=== PATIENT | male | born 1980 | race Caucasian/White ===

== ENCOUNTER 2017-06-13 13:15 | Emergency (ER) | payer SELFPAY ==
[~2017-06-13] VITALS: Ht 175.3 cm; Wt 117.4 kg
--- NOTE | 2017-06-13 14:11 | RAD ---
Indication: Back pain for one week and numbness in right leg Technique: CT of the lumbar spine without IV contrast with multiplanar reformats. Comparison: None Findings: Lumbar spine demonstrates loss of normal lumbar lordosis. This could be due to muscle spasm or positioning. There are 5 lumbar vertebral bodies. No compression deformities. No significant intervertebral disc space narrowing. There is anterior spurring. The facet joints are in normal anatomic alignment. Segmental analysis: L1-L2: No significant disc bulge or herniation. Mild bilateral facet arthropathy. No neural from narrowing. L2-L3: No significant disc bulge or herniation. Mild bilateral facet arthropathy. No neural from narrowing. L3-L4: Mild circumferential disc bulge. Mild bilateral facet arthropathy, left more than right. Mild left neural foramina narrowing with suggestion of exiting left L3 nerve contacting the disc. L4-L5: Circumferential disc bulge with superimposed right paracentral disc protrusion impinging on the anterior thecal sac. There is suggestion of spinal canal narrowing measuring 8 mm in AP dimension. Mild bilateral facet arthropathy. Mild left neural foramina narrowing. L5-S1: Mild circumferential disc bulge flattening the anterior thecal sac. No facet arthropathy. Severe right and left neural foramina narrowing. Visualized soft tissues in the abdomen and pelvis are within normal limits. Visualized SI joints within normal limits. No acute fractures. Impression: Degenerative disc disease as described above causing varying amount of neural foramina narrowing and spinal canal stenosis. Severe bilateral neural foramina narrowing at L5-S1. MRI of the lumbar spine recommended. PQRS Compliance Statement: One or more of the following individualized dose reduction techniques were utilized for this examination: 1. Automated exposure control 2. Adjustment of the mA and/or kV according to patient size 3. Use of iterative reconstruction technique
--- NOTE | 2017-06-13 14:16 | PHYS DOC ---
Past History Past Medical History: No Pertinent History Past Surgical History: Tonsillectomy Smoking: Greater than 1 pack/day Alcohol Use: Occasionally Drug Use: Marijuana Adult General Chief Complaint Chief Complaint: LOWER EXT PAIN HPI HPI 37-year-old male patient with history of intermittent episodes of low back pain and sciatica pain complaining of sudden onset of right gluteal and posterior thigh pain for the last 1 week as a constant pain. Patient states he was seen by chiropractor and after manipulation developed numbness of lateral and posterior of left lower extremity. Patient denies fever and chills, weakness of his leg, urinary and bowel incontinence, trauma. Review of Systems Review of Systems Constitutional: Denies fever or chills [] Eyes: Denies change in visual acuity, redness, or eye pain [] HENT: Denies nasal congestion or sore throat [] Respiratory: Denies cough or shortness of breath [] Cardiovascular: No additional information not addressed in HPI [] GI: Denies abdominal pain, nausea, vomiting, bloody stools or diarrhea [] : Denies dysuria or hematuria [] Musculoskeletal: Reports back pain and joint pain [] Integument: Denies rash or skin lesions [] Neurologic: Denies headache, focal weakness or sensory changes [] Endocrine: Denies polyuria or polydipsia [] All other systems were reviewed and found to be within normal limits, except as documented in this note. Allergies Allergies Allergies Coded Allergies Type Severity Reaction Last Updated Verified No Known Drug Allergies 06/13/17 No Physical Exam Physical Exam Constitutional: Well developed, well nourished, mild distress, non-toxic appearance. [] HENT: Normocephalic, atraumatic Eyes: PERRLA, EOMI, conjunctiva normal, no discharge. [] Neck: Normal range of motion, no tenderness, supple, no stridor. [] Cardiovascular:Heart rate regular rhythm, no murmur [] Lungs & Thorax: Bilateral breath sounds clear to auscultation [] Abdomen: Bowel sounds normal, soft, no tenderness, no masses, no pulsatile masses. [] Skin: Warm, dry, no erythema, no rash. [] Back: No midline tenderness or deformity, limited range of motion of lumbar spine with pain, Extremities: No tenderness, no cyanosis, no clubbing, ROM intact, no edema. [] Neurologic: Alert and oriented X 3, normal motor function, subjective paresthesias during lateral side and posterior of right lower extremity, no abnormal reflexes,, no focal deficits noted. [] Psychologic: Affect normal, judgement normal, mood normal. [] Current Patient Data Vital Signs Vital Signs Date Time Temp Pulse Resp B/P (MAP) Pulse Ox O2 Delivery O2 Flow Rate FiO2 06/13/17 13:32 98.1 88 18 98 Room Air EKG EKG [] Radiology/Procedures Radiology/Procedures [] [address] [address] IMAGING REPORT Signed PATIENT: ABI AHMADI ACCOUNT: [id number] : 1980 LOCATION: ER AGE: 37 SEX: F EXAM STATUS: REG ER ORD. PHYSICIAN: JOSE R MINER MD REASON: back pain and numbness PROCEDURE: CT LUMBAR SPINE WO CONTRAST Indication: Back pain for one week and numbness in right leg Technique: CT of the lumbar spine without IV contrast with multiplanar reformats. Comparison: None Findings: Lumbar spine demonstrates loss of normal lumbar lordosis. This could be due to muscle spasm or positioning. There are 5 lumbar vertebral bodies. No compression deformities. No significant intervertebral disc space narrowing. There is anterior spurring. The facet joints are in normal anatomic alignment. Segmental analysis: L1-L2: No significant disc bulge or herniation. Mild bilateral facet arthropathy. No neural from narrowing. L2-L3: No significant disc bulge or herniation. Mild bilateral facet arthropathy. No neural from narrowing. L3-L4: Mild circumferential disc bulge. Mild bilateral facet arthropathy, left more than right. Mild left neural foramina narrowing with suggestion of exiting left L3 nerve contacting the disc. L4-L5: Circumferential disc bulge with superimposed right paracentral disc protrusion impinging on the anterior thecal sac. There is suggestion of spinal canal narrowing measuring 8 mm in AP dimension. Mild bilateral facet arthropathy. Mild left neural foramina narrowing. L5-S1: Mild circumferential disc bulge flattening the anterior thecal sac. No facet arthropathy. Severe right and left neural foramina narrowing. Visualized soft tissues in the abdomen and pelvis are within normal limits. Visualized SI joints within normal limits. No acute fractures. Impression: Degenerative disc disease as described above causing varying amount of neural foramina narrowing and spinal canal stenosis. Severe bilateral neural foramina narrowing at L5-S1. MRI of the lumbar spine recommended. PQRS Compliance Statement: One or more of the following individualized dose reduction techniques were utilized for this examination: 1. Automated exposure control 2. Adjustment of the mA and/or kV according to patient size 3. Use of iterative reconstruction technique DICTATED AND SIGNED BY: RADHA GUILLEN DO DATE: 06/13/17 1403 CC: JOSE R MINER MD; PCP,KRISTA ~ Course & Med Decision Making Course & Med Decision Making Pertinent Imaging studies reviewed. (See chart for details) Evaluation of patient in ER showed 37-year-old male patient with complaining of low back pain and right lower extremity numbness after manipulation by chiropractor. Patient had objective paresthesia of right lower extremity. CT of the lumbar spine showed severest spinal stenosis of L5-S1. Patient instructed to follow up with on-call neurologist and his primary care physician for recommended MRI. Patient instructed to not follow up with chiropractor and not apply heat on his back. Dragon Disclaimer Dragon Disclaimer This electronic medical record was generated, in whole or in part, using a voice recognition dictation system. Departure Departure: Impression: Primary Impression: Spinal stenosis of lumbar region Additional Impressions: Sciatica neuralgia Tobacco abuse Tobacco abuse counseling Disposition: HOME, SELF-CARE (At 1431) Condition: STABLE Referrals: PCPKRISTA (PCP) DEEPA STEEN MD Patient Instructions: Sciatica, Spinal Stenosis Additional Instructions: Apply ice on your back Follow-up with your primary care physician in 3-5 days Return to ER if not getting better Scripts Prednisone (PREDNISONE) 50 Mg Tablet 1 TAB PO DAILY, #5 TAB Prov: JOSE R MINER MD 06/13/17 Tramadol Hcl (ULTRAM) 50 Mg Tablet 50 MG PO PRN Q6HRS Y for PAIN, #20 TAB Prov: JOSE R MINER MD 06/13/17 Cyclobenzaprine Hcl (CYCLOBENZAPRINE HCL) 10 Mg Tablet 1 TAB PO TID, #30 TAB Prov: JOSE R MINER MD 06/13/17 Ibuprofen (IBUPROFEN) 800 Mg Tablet 1 TAB PO TID, #30 TAB Prov: JOSE R MINER MD 06/13/17 Problem Qualifiers JOSE R MINER MD Jun 13, 2017 14:16
[2017-06-13] MEDS ORDERED: PRED50TA PO (14:35)
[2017-06-13] MEDS ORDERED: CYCL-331 PO (14:35)
[2017-06-13] MEDS ORDERED: IBUP800T19 PO (14:35)
[2017-06-13] MEDS ORDERED: TRAM-48 PO (14:35)
[2017-06-13] MEDS ORDERED: IV RINGERS SOLUTION,LACTATED 1,000 ML IV ONE (14:45)
[2017-06-13 14:51] VITALS: BP 156/93
== END 2017-06-13 14:52 | disposition home or self-care (01) ==
LOC: ER 13:15 → EDSEX 13:15 → ER 14:52
DX: M48.061 Spinal stenosis, lumbar region without neurogenic claudication (principal); M54.41 Lumbago with sciatica, right side; F17.210 Nicotine dependence, cigarettes, uncomplicated; F12.10 Cannabis abuse, uncomplicated; Z71.6 Tobacco abuse counseling
CPT/HCPCS: 72131; 99284-25

== ENCOUNTER → 2018-08-05 | Outpatient (CLI) | payer BC ==
[~2018-08-05] MED LIST: CYCL-331 PO; IBUP800T19 PO; PRED50TA PO; TRAM-48 PO
--- NOTE | 2018-08-05 11:21 | RAD ---
EXAM: Right foot, 2 views; right ankle, 3 views. HISTORY: Twisting injury. COMPARISON: None. FINDINGS: 3 views of the right foot and ankle are obtained. There is a mildly displaced fracture at the base of the fifth metatarsal. 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 There is a tiny corticated ossicle at the base of the first distal phalanx, likely developmental. There are also small corticated ossicles inferior to the medial and lateral malleoli which are likely due to the sequela of remote injury. There is mild ankle soft tissue swelling. The ankle mortise is intact. No osteochondral lesion is seen. IMPRESSION: 1. Mildly displaced fracture the base of the fifth metatarsal. 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 Correlate for pain in this location. 2. Mild ankle soft tissue swelling. Electronically signed by: Lisa Jauregui MD (08/05/2018 11:19 AM) [facility]
== END | disposition home or self-care (01) ==
LOC: PMG 10:59
PROVIDERS: ATTEND Physician Assistant Medical
DX: S92.351A Displaced fracture of fifth metatarsal bone, right foot, initial encounter for closed fracture (principal); R22.9 Localized swelling, mass and lump, unspecified; X58.XXXA Exposure to other specified factors, initial encounter; Y93.89 Activity, other specified; Y92.89 Other specified places as the place of occurrence of the external cause; Y99.8 Other external cause status
CPT/HCPCS: 73610; 73620

== ENCOUNTER 2018-11-04 10:43 | Emergency (ER) | payer BC ==
[~2018-11-04] VITALS: Ht 182.9 cm; Wt 120.2 kg
[2018-11-04] MEDS ORDERED: IV NORMAL SALINE 1,000ML 1,000 ML IV SCH (10:53)
--- NOTE | 2018-11-04 11:02 | PHYS DOC ---
Past History Past Medical History: No Pertinent History Past Surgical History: Tonsillectomy Smoking: Greater than 1 pack/day Alcohol Use: Occasionally Drug Use: Marijuana Adult General Chief Complaint Chief Complaint: CHEST PAIN [facility] HPI The patient is a pleasant 38-year-old male who presents for evaluation of chest pain which started last night. He states that he drank some water and it seemed to calm him down a little bit. Today he woke up and he felt somewhat lightheaded and has been having intermittent chest discomfort. He describes the pain as sharp and nonradiating. He cannot think of anything that makes the pain better or worse. He denies being under any increased stress but does state that he is just beginning the process of quitting smoking. He reports his grandfather had cardiac problems but is unsure at what age. He takes valsartan for hypertension but denies any other medications. He is alert and oriented �4, calm, and appears to be in no distress. He denies having any chest discomfort currently. He has not taken any aspirin prior to arrival. He denies fevers or chills, vomiting, productive cough, flank pain, palpitations, or syncope. He does state that he feels somewhat lightheaded and was sweating earlier. Review of Systems Review of Systems Constitutional: Denies fever or chills [] Eyes: Denies change in visual acuity, redness, or eye pain [] HENT: Denies nasal congestion or sore throat [] Respiratory: Denies cough or shortness of breath [] Cardiovascular: No additional information not addressed in HPI [] +cp GI: Denies abdominal pain, nausea, vomiting, bloody stools or diarrhea [] : Denies dysuria or hematuria [] Musculoskeletal: Denies back pain or joint pain [] Integument: Denies rash or skin lesions [] Neurologic: Denies headache, focal weakness or sensory changes [] +lightheaded Endocrine: Denies polyuria or polydipsia [] All other systems were reviewed and found to be within normal limits, except as documented in this note. Current Medications Current Medications Current Medications Medications (Trade) Dose Ordered Sig/Erick Start Time Stop Time Status Last Admin Dose Admin Aspirin (Woody Aspirin) 325 mg 1X ONCE 11/04/18 11:00 11/04/18 11:01 UNV Sodium Chloride 1,000 ml @ 1,000 mls/hr Q1H 11/04/18 10:53 11/04/18 11:52 UNV Allergies Allergies Allergies Coded Allergies Type Severity Reaction Last Updated Verified No Known Drug Allergies 06/13/17 No Physical Exam Physical Exam Constitutional: Well developed, well nourished, no acute distress, non-toxic appearance. [] calm, appears to be in no distress HENT: Normocephalic, atraumatic, bilateral external ears normal, oropharynx moist, no oral exudates, nose normal. [] Eyes: PERRLA, EOMI, conjunctiva normal, no discharge. [] Neck: Normal range of motion, no tenderness, supple, no stridor. [] Cardiovascular:Heart rate regular rhythm, no murmur [] Lungs & Thorax: Bilateral breath sounds clear to auscultation [] Abdomen: Bowel sounds normal, soft, no tenderness, no masses, no pulsatile masses. [] Skin: Warm, dry, no erythema, no rash. [] Back: No tenderness, no CVA tenderness. [] Extremities: No tenderness, no cyanosis, no clubbing, ROM intact, no edema. [] Neurologic: Alert and oriented X 3, normal motor function, normal sensory function, no focal deficits noted. [] Psychologic: Affect normal, judgement normal, mood normal. [] EKG EKG Normal sinus rhythm, rate of 74, normal axis, no acute ischemic findings noted, no STEMI, reviewed and interpreted by myself Radiology/Procedures Radiology/Procedures [] Course & Med Decision Making Course & Med Decision Making Pertinent Labs and Imaging studies reviewed. (See chart for details) @1400 - patient updated on all lab and imaging results which are acutely unremarkable other than a slight elevation of his creatinine and CK. He has been pain-free for over an hour and is asking to go home. Workup today fails reveal any emergent pathology. The patient's trying to quit smoking and encouraged him to continue and also to stay very well-hydrated at home. Advised patient to follow-up with his PCP in the next 2-3 days and to return to the emergency department immediately for new or worsening symptoms. He expresses verbal understanding agree with the plan is stable for discharge at this time. Dragon Disclaimer Dragon Disclaimer This electronic medical record was generated, in whole or in part, using a voice recognition dictation system. Departure Departure: Impression: Primary Impression: Chest pain Disposition: ADMITTED INPATIENT Condition: STABLE Referrals: TAYLOR FERRIS (PCP) Patient Instructions: Chest Pain (Nonspecific) Additional Instructions: Follow-up with your doctor in the next 1-2 days. Return to the ER immediately for new or worsening symptoms. SRAVANI HOOPER DO Nov 04, 2018 11:02
[2018-11-04 11:13] LABS: BASO % 1 % (0-3); EOS % 0 % (0-3); HEMATOCRIT 46.4 % (39.0-53.0); HEMOGLOBIN 16.2 g/dL (13.0-17.5); LYMPH # 1.4 x10^3/uL (1.0-4.8); LYMPH % 24 % (24-48); MEAN CORPUSCULAR HEMOGLOBIN 32 pg (25-35); MEAN CORPUSCULAR HGB CONC 35 g/dL (31-37); MEAN CORPUSCULAR VOLUME 92 fL (79-100); MONO # 0.9 x10^3/uL (0.0-1.1); MONO % 15 % (0-9); NEUT # 3.7 x10^3uL (1.8-7.7); NEUT % 61 % (31-73); PLATELET COUNT 157 x10^3/uL (140-400); RED BLOOD COUNT 5.05 x10^6/uL (4.30-5.70); RED CELL DISTRIBUTION WIDTH 13.6 % (11.5-14.5); WHITE BLOOD COUNT 6.1 x10^3/uL (4.0-11.0)
[2018-11-04] MEDS ORDERED: ASPIRIN 325 MG TABLET PO ONE (11:20)
--- NOTE | 2018-11-04 11:39 | RAD ---
PROCEDURE: PORTABLE CHEST 1V CLINICAL INDICATION: Chest pain.w COMPARISON: None FINDINGS: No pneumothorax identified. Cardiac and mediastinal contours unremarkable. No pulmonary consolidation or acute airspace disease. No acute osseous abnormalities identified. IMPRESSION: No pulmonary consolidation or acute airspace disease. Electronically signed by: Alfie Lyn DO (11/04/2018 11:37 AM) [facility]
[2018-11-04 11:42] LABS: ALBUMIN 4.2 g/dL (3.4-5.0); ALBUMIN/GLOBULIN RATIO 1.3 (1.0-1.7); CALCIUM 9.2 mg/dL (8.5-10.1); CREATININE 1.4 mg/dL (0.7-1.3); GFR 56.4; MAGNESIUM 1.9 mg/dL (1.8-2.4); POTASSIUM 4.1 mmol/L (3.5-5.1); TOTAL BILIRUBIN 0.4 mg/dL (0.2-1.0); TOTAL PROTEIN 7.5 g/dL (6.4-8.2)
[2018-11-04] MEDS ORDERED: IV NORMAL SALINE 1,000ML 1,000 ML IV ONE (12:15)
[2018-11-04 13:30] VITALS: BP 148/84
--- NOTE | 2018-11-04 18:29 | EKG ---
[address] [address] Test Date: 2018-11-04 Test Time: 11:05:31 Pat Name: ABI AHMADI Department: Room: Gender: M Annual Giving Officer: LARA : 1980 Requested By: SRAVANI HOOPER Order Number: [id number] Reading MD: Brenton Tong MD Measurements Intervals [place] Rate: 74 P: -8 [place]: 140 QRS: 54 QRSD: 90 T: 31 QT: 366 QTc: 407 Interpretive Statements SINUS RHYTHM Electronically Signed On 11-06-2018 15:39:44 CDT by Brenton Tong MD
== END 2018-11-04 14:40 | disposition home or self-care (01) ==
LOC: ER 10:43
DX: R07.89 Other chest pain (principal); R42 Dizziness and giddiness; F17.200 Nicotine dependence, unspecified, uncomplicated
CPT/HCPCS: 36415; 71045; 80053; 82550; 82553; 83690; 83735; 84484; 85025; 93005; 96360; 96361; 99285-25; J7030